=== PATIENT | male | born 1955 | race Caucasian/White ===

== ENCOUNTER 2019-03-25 10:26 | Day surgery (SDC) | payer OTHER ==
[~2019-03-25] VITALS: Ht 161.3 cm; Wt 93.5 kg
[2019-03-25] VITALS (13 sets, daily range): BP systolic 119–154; BP diastolic 62–97; PULSE 86–195; RESP 16–29; Ht 161.3 cm; Wt 93.5 kg
[~2019-03-25 10:26] MED LIST: CIPROFLOXACIN 400MG/D5W 200 ML IVPB ONE
[2019-03-25] MEDS ORDERED: SITA100T11 PO (10:52)
[2019-03-25] MEDS ORDERED: PIOG15TA12 PO (10:52)
[2019-03-25] MEDS ORDERED: METF850T13 PO (10:52)
[2019-03-25] MEDS ORDERED: LOSA1TAB25 PO (10:52)
[2019-03-25] MEDS ORDERED: INSU100I33 SC (10:54)
[2019-03-25] MEDS ORDERED: TAMS-14 PO (10:55)
[2019-03-25] MEDS ORDERED: NIFE60TA18 PO (10:55)
[2019-03-25] MEDS ORDERED: FENTAnyl 50 MCG/ML VIAL ONE (12:02)
[2019-03-25] MEDS ORDERED: MIDAZOLAM 1 MG/ML 2 ML INJ ONE (12:02)
[2019-03-25] MEDS ORDERED: LIDOCAINE 2% (SDV) 5 ML INJ ONE (12:03)
[2019-03-25] MEDS ORDERED: ONDANSETRON 4 MG INJ ONE (12:03)
[2019-03-25] MEDS ORDERED: METOCLOPRAMIDE 10 MG INJ ONE (12:03)
[2019-03-25] MEDS ORDERED: CEFAZOLIN 1 GM INJ ONE (12:03)
[2019-03-25] MEDS ORDERED: PROPOFOL 20 ML ONE (12:03)
--- NOTE | 2019-03-25 12:22 | HPN ---
Date/Time of Note Date/Time of Note DATE: 03/25/19 TIME: 12:22 Interval H&P Admission Note Pt. seen H&P reviewed: No system changes FRANTZ LEROY Mar 25, 2019 12:22
--- NOTE | 2019-03-25 12:42 | PREAC ---
Date/Time of Note Date/Time of Note DATE: 03/25/19 TIME: 12:40 Anesthesia Eval and Record Evaluation Time Pre-Procedure Interview DATE: 03/25/19 TIME: 12:40 Age 63 Sex male NPO: 8 hrs Preoperative diagnosis bladder stones Planned procedure lithotrypsy of bladder stones Past Medical History Past Medical History: Includes Cardio: HTN, Dyslipidemia Endo: Diabetes, Hypothyroid Pulm: Sleep Apnea Neuro: Peripheral neuropathy GI: Morbid obesity Psych: Depression, Anxiety Surgery & Anesthesia Issues No known issue Meds Anticoagulation: No Beta Srinivasan within 24 hr: No Reason Beta Srinivasan not given: Pt. not on B-Srinivasan Reported Medications Tamsulosin Hcl* (Flomax*) 0.4 Mg Cap.er.24h, 0.8 MG PO HS, CAP 03/25/19 Nifedipine* (Nifedipine ER*) 60 Mg Tablet.sa, 60 MG PO DAILY, TAB.SA 03/25/19 Insulin Glargine,Hum.rec.anlog (Basaglar Kwikpen U-100) 100 Unit/1 Ml Insuln.pen, 15 UNIT SC QHS, EA 03/25/19 Sitagliptin* (Januvia*) 100 Mg Tablet, 100 MG PO DAILY, #30 TAB 03/25/19 Losartan-Hydrochlorothiazide (Losartan-HCTZ) 100-25 Mg Tab, 1 TAB PO DAILY, TAB 03/25/19 Metformin Hcl* (Metformin Hcl*) 850 Mg Tablet, 850 MG PO WITH BREAKFAST DINNE, #60 TAB 03/25/19 Pioglitazone Hcl* (Actos*) 15 Mg Tablet, 15 MG PO DAILY, #30 TAB 03/25/19 Meds reviewed: Yes Allergies Coded Allergies: No Known Drug Allergies (Unverified Allergy, Unknown, 03/25/19) Allergies Reviewed: Yes Labs/Studies Labs Reviewed: Reviewed by anesthesiologist test: N/A Studies: ECG, CXR Pre-procedure Exam Last vitals Vital Signs Date Temp Pulse Resp B/P (MAP) Pulse Ox O2 O2 Flow FiO2 Time Delivery Rate 03/25/19 97.9 86 16 153/90 98 Room Air 11:05 (111) Airway: Adequate mouth opening, Adequate thyromental dist Mallampati: Mallampati III Teeth: Normal Lung: Normal Heart: Normal ASA Physical Status ASA physical status: 3 Emergency: None Planned Anesthetic General/MAC: LMA Planned Pain Management Parenteral pain med, Local by surgeon Pre-operative Attestations Prior to commencing anesthesia and surgery, the patient was re-evaluated, there was verification of: *The patient's identity *The results of appropriate recent lab work and preoperative vital signs *The above evaluation not changing prior to induction *Anesthetic plan, risk benefits, alternative and complications discussed with patient/family; questions answered; patient/family understands, accepts and wishes to proceed. GILMAR BAILEY MD Mar 25, 2019 12:42
[2019-03-25] MEDS ORDERED: ONDANSETRON 4 MG INJ IV PRN (13:00)
[2019-03-25] MEDS ORDERED: IPRATROPIUM (NEB) 0.5 MG/2.5 ML AMP HHN PRN (13:00)
[2019-03-25] MEDS ORDERED: FENTAnyl 50 MCG/ML VIAL IV PRN ×2 (13:00)
[2019-03-25] MEDS ORDERED: DIPHENHYDRAMINE 50 MG INJ IV PRN (13:00)
[2019-03-25] MEDS ORDERED: HYDROmorphONE 1 MG/5 ML IV SYRINGE IV PRN ×2 (13:00)
[2019-03-25] MEDS ORDERED: LEVALBUTEROL (NEB) 1.25 MG/0.5 ML AMP HHN PRN (13:00)
[2019-03-25] MEDS ORDERED: hydrALAzine 20 MG INJ IV PRN (13:00)
[2019-03-25] MEDS ORDERED: MEPERIDINE 25 MG INJ IV PRN (13:00)
[2019-03-25] MEDS ORDERED: LABETALOL HCL 20MG INJ IV PRN (13:00)
[2019-03-25] MEDS ORDERED: KETOROLAC 30 MG INJ IV PRN (13:00)
[2019-03-25] MEDS ORDERED: SUCCINYLCHOLINE CHLORIDE 100 MG/5 ML SYG IV ONE (13:09)
--- NOTE | 2019-03-25 13:42 | PDOCDIS ---
Discharge Instructions DIAGNOSIS Discharge Diagnosis Extensive bladder stones CONDITION [id number] Patient Condition: [id number] Good HOME CARE INSTRUCTIONS: Alexandru Diet Instructions: Elizabeth Regular ACTIVITY: Alexandru Activity Restrictions: Elizabeth Slowly Increase Activity Alexandru Bathing Restrictions: Elizabeth Shower FOLLOW UP/APPOINTMENTS Follow-up Plan Follow up next week in [facility] for removal of Rivera, call for date and time REFERRALS Alexandru Referring Provider: FRANTZ Briseno OTHER ORDERS: Other Orders: Rivera to leg bag FRANTZ LEROY Mar 25, 2019 13:42
--- NOTE | 2019-03-25 13:45 | OPR ---
Date/Time of Note Date/Time of Note DATE: 03/25/19 TIME: 13:43 Operative Report Procedure Date: Mar 25, 2019 Preoperative Diagnosis Extensive bladder stones Postoperative Diagnosis Extensive bladder stones Operation/Procedure Performed Cytso endoscopic laser lithotripsy of Extensive bladder stones Surgeon [facility] Consultant none Anesthesia Type: general Estimated Blood Loss: none Transfusion none Specimen bladder stone Grafts/Implants none Tubes/Drains [address] Rivera Complications none Pt Condition Post Procedure: stable Indications Extensive bladder stones Procedure Description dict [id number] FRANTZ LEROY Mar 25, 2019 13:45
--- NOTE | 2019-03-25 13:55 | PAC ---
Date/Time of Note Date/Time of Note DATE: 03/25/19 TIME: 13:55 Post-Anesthesia Notes Post-Anesthesia Note Last documented vital signs Vital Signs Date Temp Pulse Resp B/P (MAP) Pulse Ox O2 O2 Flow FiO2 Time Delivery Rate 03/25/19 98.0 13:53 03/25/19 86 16 153/90 98 Room Air 11:05 (111) Activity: WNL Respiratory function: WNL Cardiovascular function: WNL Mental status: Baseline Pain reasonably controlled: Yes Hydration appropriate: Yes Nausea/Vomiting absent: Yes GILMAR BALIEY MD Mar 25, 2019 13:55
--- NOTE | 2019-03-25 16:27 | OPR ---
DATE OF OPERATION: 03/25/2019 PREOPERATIVE DIAGNOSIS: Extensive bladder stones. POSTOPERATIVE DIAGNOSIS: Extensive bladder stones. OPERATION PERFORMED: Cystoscopy, endoscopic holmium laser lithotripsy. SURGEON: Frantz Leroy MD ANESTHESIA: General. COMPLICATIONS: None. DRAINS: A 20-[place] 2-way Rivera catheter. DESCRIPTION OF PROCEDURE: The patient was brought into the operating room and placed on the operatin g table in the supine lithotomy position. He was prepped and draped in usual fashion after anesthesi a was induced. A timeout was undertaken. Appropriate pressure points were padded. He received preo perative antibiotic therapy. Sequential compression devices were applied. Rigid cystoscopy was unde rtaken with a 12-degree, 30-degree angle lens. No abnormalities of the anterior urethra could be neda reciated. Trilobar enlargement of the prostatic lobes was noted with a large amount of dilated blood vessels at the bladder neck. The bladder was inspected in a systematic fashion and is filled out wi th bladder stones. I am unable to visualize the ureteral orifices secondary to trabeculation and the large amount of bladder stones. Endoscopic holmium laser lithotripsy was undertaken under direct vi shan today utilizing 1000 holmium fiber with an initial energy setting of 18 lagunas, 15 Hz and 1.2 margi les. The stone burden is noted to be extensive and the stones are very hard in nature and thus, the settings were changed as to try to maximize breakage of the stone which was only limited. A maximum of 22-watt setting with 15 Hz and 1.5 joules was utilized despite altering of the settings with total of 13,300 joules, only small amount of fragmentation of stone burden could be appreciated. At this point, oozing from the bladder neck was noted. As the stones are not breaking up well and there is a large amount, it is felt that he will require an open procedure. The stone fragments were removed w ith an [employer] evacuator. A 20-[place] 2-way Rivera catheter was inserted. Efflux was noted to be clear . He will be discharged home with a Rivera to leg bag. Follow up in the office next week for a trial of void and discussion of staged options. He will be discharged home on [place] 5/325 one tab p.o. q. 6 p.r.n., dispensed #25, no refill. Dictated By: FRANTZ LEROY MD EGR/NTS Conf#: [id number] DID#: [id number]
== END 2019-03-25 15:48 | disposition home or self-care (01) ==
LOC: SDS 10:26
PROVIDERS: ATTEND Urology
DX: N21.0 Calculus in bladder (principal); E11.9 Type 2 diabetes mellitus without complications; I10 Essential (primary) hypertension; N40.0 Benign prostatic hyperplasia without lower urinary tract symptoms; N52.9 Male erectile dysfunction, unspecified; N28.1 Cyst of kidney, acquired; N35.919 Unspecified urethral stricture, male, unspecified site; E66.9 Obesity, unspecified; Z68.35 Body mass index [BMI] 35.0-35.9, adult; Z79.84 Long term (current) use of oral hypoglycemic drugs; Z79.4 Long term (current) use of insulin
CPT/HCPCS: 52318; 82962; 88300; J0690; J1170; J2250; J2405; J2765; J3010; Z7512; Z7610; J0744